=== PATIENT | male | born 1945 | race Caucasian/White ===

== ENCOUNTER 2024-06-08 08:42 | Emergency (ER) | payer MEDICARE ==
[2024-06-08 08:47] VITALS: TEMP 98.2
--- NOTE | 2024-06-08 09:10 | ED ---
Male Urogenital HPI - General Chief complaint: Urogenital Stated complaint: abd pain Time Seen by Provider: 06/08/24 08:44 Source: patient, family, RN notes reviewed Mode of arrival: ambulatory Limitations: no limitations - History of Present Illness Initial comments: 79-year-old male presents emergency department with chief complaint of unable to urinate. Patient states has not been able to urinate overnight states he has lower abdominal pressure, discomfort. He states he had this happen 1 other time. Patient denies any change in bowel habits no fevers or chills no chest pain or shortness of breath. - Related Data Previous Rx's Medication Instructions Recorded Ciprofloxacin HCl [Cipro] 500 mg PO Q12HR #20 tablet 06/08/24 Tamsulosin [Flomax] 0.4 mg PO DAILY #7 cap 06/08/24 Allergies Allergy/AdvReac Type Severity Reaction Status Date / Time No Known Allergies Allergy Verified 06/08/24 10:07 Review of Systems ROS Statement: Those systems with pertinent positive or pertinent negative responses have been documented in the HPI. ROS Other: All systems not noted in ROS Statement are negative. Past Medical History Past Medical History: No Reported History History of Any Multi-Drug Resistant Organisms: None Reported Past Surgical History: No Surgical Hx Reported Past Anesthesia/Blood Transfusion Reactions: No Reported Reaction Additional Past Anesthesia/Blood Transfusion Reaction / Comment(s): HAS NEVER HAD SURGERY Past Psychological History: No Psychological Hx Reported Smoking Status: Never smoker Past Alcohol Use History: Occasional Past Drug Use History: None Reported General Exam Limitations: no limitations General appearance: alert, in no apparent distress Head exam: Present: atraumatic, normocephalic, normal inspection Eye exam: Present: normal appearance, PERRL, EOMI. Absent: scleral icterus, conjunctival injection, periorbital swelling Respiratory exam: Present: normal lung sounds bilaterally. Absent: respiratory distress, wheezes, rales, rhonchi, stridor Cardiovascular Exam: Present: regular rate, normal rhythm, normal heart sounds. Absent: systolic murmur, diastolic murmur, rubs, gallop, clicks GI/Abdominal exam: Present: soft, tenderness, normal bowel sounds. Absent: distended, guarding, rebound, rigid Back exam: Absent: CVA tenderness (R), CVA tenderness (L) Course Vital Signs 06/08/24 06/08/24 06/08/24 08:44 09:18 11:05 Temperature 98.2 F Pulse Rate 100 74 Respiratory 18 20 Rate Blood Pressure 198/109 151/94 174/107 O2 Sat by Pulse 98 98 Oximetry Medical Decision Making - Medical Decision Making Was pt. sent in by a medical professional or institution ([facility] Thorpe, [employer] INSTRUMENT REPAIRER, urgent care, hospital, or [facility]...) When possible be specific @ -No Did you speak to anyone other than the patient for history (EMS, parent, family, police, friend...)? What history was obtained from this source @ -No Did you review nursing and triage notes (agree or disagree)? Why? @ -I reviewed and agree with nursing and triage notes Were old charts reviewed (outside hosp., previous admission, EMS record, old EKG, old radiological studies, urgent care reports/EKG's, [facility] records)? Report findings @ -No old charts were reviewed Differential Diagnosis (chest pain, altered mental status, abdominal pain women, abdominal pain men, vaginal bleeding, weakness, fever, dyspnea, syncope, headache, dizziness, GI bleed, back pain, seizure, CVA, palpatations, mental health, musculoskeletal)? @ -Urinary retention, prostatitis, UTI EKG interpreted by me (3pts min.). @ -As above X-rays interpreted by me (1pt min.). @ -None done CT interpreted by me (1pt min.). @ -None done U/S interpreted by me (1pt. min.). @ -None done What testing was considered but not performed or refused? (CT, X-rays, U/S, labs)? Why? @ -None What meds were considered but not given or refused? Why? @ -None Did you discuss the management of the patient with other professionals (professionals i.e. [facility] Thorpe, [employer] INSTRUMENT REPAIRER, lab, RT, psych nurse, health and social care teacher, senior cognos developer, teacher, house officer, caseworker protective services)? Give summary @ -No Was smoking cessation discussed for >3mins.? @ -No Was critical care preformed (if so, how long)? @ -No Were there social determinants of health that impacted care today? How? (Homel essness, low income, unemployed, alcoholism, drug addiction, transportation, low edu. Level, literacy, decrease access to med. care, detention, rehab)? @ -No Was there de-escalation of care discussed even if they declined (Discuss DNR or withdrawal of care, Hospice)? DNR status @ -No What co-morbidities impacted this encounter? (DM, HTN, Smoking, COPD, CAD, Cancer, CVA, ARF, Chemo, Hep., AIDS, mental health diagnosis, sleep apnea, morbid obesity)? @ -None Was patient admitted / discharged? Hospital course, mention meds given and route, prescriptions, significant lab abnormalities, going to OR and other pertinent info. @ -[Discharge patient presented for urinary retention patient did relief after Grajeda catheter patient found to have UTI patient was given Rocephin discharged on oral antibiotics patient will follow-up with urology return parens discussed. Undiagnosed new problem with uncertain prognosis? @ -No Drug Therapy requiring intensive monitoring for toxicity (Heparin, Nitro, Insulin, Cardizem)? @ -No Were any procedures done? @ -No Diagnosis/symptom? @ -UTI, urinary retention Acute, or Chronic, or Acute on Chronic? @ -[Acute Uncomplicated (without systemic symptoms) or Complicated (systemic symptoms)? @ -Uncomplicated Side effects of treatment? @ -No Exacerbation, Progression, or Severe Exacerbation? @ -No Poses a threat to life or bodily function? How? (Chest pain, [place], [place], pneumonia, PE, COPD, DKA, ARF, appy, cholecystitis, CVA, Diverticulitis, Homicidal, Suicidal, threat to staff... and all critical care pts) @ -No - Lab Data Lab Results 06/08/24 Range/Units 09:18 Urine Color Light Yellow Urine Appearance Cloudy (Clear) Urine pH 6.0 (5.0-8.0) Ur Specific [place] 1.013 (1.001-1.035) Urine Protein Trace H (Negative) Urine Glucose (UA) Negative (Negative) Urine Ketones Negative (Negative) Urine Blood Large H (Negative) Urine Nitrite Positive (Negative) Urine Bilirubin Negative (Negative) Urine Urobilinogen <2.0 (<2.0) mg/dL Ur Leukocyte Esterase Large H (Negative) Urine RBC >182 H (0-5) /hpf Urine WBC >182 H (0-5) /hpf Urine WBC Clumps Few H (None) /hpf Urine Bacteria Few H (None) /hpf Urine Mucus Rare H (None) /hpf Disposition Clinical Impression: Urinary retention, UTI (urinary tract infection) Disposition: HOME SELF-CARE Condition: Stable Instructions (If sedation given, give patient instructions): Urinary Retention in Men (ED) Additional Instructions: Please return to the Emergency Department if symptoms worsen or any other concerns. Prescriptions: Ciprofloxacin HCl [Cipro] 500 mg PO Q12HR #20 tablet Tamsulosin [Flomax] 0.4 mg PO DAILY #7 cap Is patient prescribed a controlled substance at d/c from ED?: No Referrals: Genevieve Jay MD [Primary Care Provider] - 1-2 days Mariano Beth MD [STAFF PHYSICIAN] - 1-2 days Time of Disposition: 09:54
[2024-06-08 09:43] LABS: Appearance,Urine Cloudy (Clear); Bacteria,Urine Few /hpf; Bilirubin,Urine Negative (Negative); Blood,Urine Large (Negative); Color,Urine Light Yellow; Glucose,Urine (UA) Negative (Negative); Ketones,Urine Negative (Negative); Leukocyte Esterase,Urine Large (Negative); Mucus,Urine Rare /hpf; Nitrite,Urine Positive (Negative); Protein,Urine Trace (Negative); RBC,Urine >182 /hpf (0-5); Specific Gravity,Urine 1.013 (1.001-1.035); Urobilinogen,Urine <2.0 mg/dL (<2.0); WBC,Urine >182 /hpf (0-5)
[2024-06-08] MEDS: TAMSULOSIN 0.4 MG CAP.ER.24H PO STA (10:34)
[2024-06-08] MEDS: cefTRIAXone 1,000 MG VIAL (IM USE) IM STA (10:53)
[2024-06-08 11:16] VITALS: BP 174/107; PULSE 74; RESP 20
== END 2024-06-08 11:16 | disposition home or self-care (01) ==
LOC: EC 08:42
DX: N39.0 Urinary tract infection, site not specified (principal); R33.9 Retention of urine, unspecified; B96.20 Unspecified Escherichia coli [E. coli] as the cause of diseases classified elsewhere
CPT/HCPCS: 51798; 81001; 87086; 87077; 87186; 99284; 51702; 96372; J0696

== ENCOUNTER 2024-06-18 02:42 | Emergency (ER) | payer MEDICARE ==
[2024-06-18 02:48] VITALS: RESP 18; TEMP 97.8
--- NOTE | 2024-06-18 03:30 | ED ---
General Adult HPI - General Chief complaint: Recheck/Abnormal Lab/Rx Stated complaint: chest pressure Time Seen by Provider: 06/18/24 03:02 Source: patient Mode of arrival: ambulatory Limitations: no limitations - History of Present Illness Initial comments: This patient is an 79-year-old man who is here with complaints mainly that he has not been able to sleep tonight. The patient noted feeling alternately warm and cold and also anxious. He is denying pain anywhere. No dyspnea or cough. The patient does not believe he was having fever. Onset/Timin -: hour(s) Severity scale (1-10): 0 Consistency: constant Improves with: none Worsens with: none Associated Symptoms: denies other symptoms - Related Data Previous Rx's Medication Instructions Recorded Ciprofloxacin HCl [Cipro] 500 mg PO Q12HR #20 tablet 06/08/24 Tamsulosin [Flomax] 0.4 mg PO DAILY #7 cap 06/08/24 Nitrofurantoin Monohyd/M-Cryst 100 mg PO Q12HR #14 cap 06/14/24 [Macrobid] Allergies Allergy/AdvReac Type Severity Reaction Status Date / Time No Known Allergies Allergy Verified 06/18/24 02:45 Review of Systems ROS Statement: Those systems with pertinent positive or pertinent negative responses have been documented in the HPI. ROS Other: All systems not noted in ROS Statement are negative. Constitutional: Reports: chills. Denies: fever, weakness Eyes: Denies: vision change Respiratory: Denies: cough, dyspnea Cardiovascular: Denies: chest pain, palpitations, edema, syncope Gastrointestinal: Denies: abdominal pain, nausea, vomiting, diarrhea Genitourinary: Denies: dysuria, hematuria Musculoskeletal: Denies: back pain Skin: Denies: rash Neurological: Denies: headache, weakness, numbness Psychiatric: Reports: anxiety Past Medical History Past Medical History: No Reported History Additional Past Medical History / Comment(s): urinary retention History of Any Multi-Drug Resistant Organisms: None Reported Past Surgical History: No Surgical Hx Reported, Hernia Repair Past Anesthesia/Blood Transfusion Reactions: No Reported Reaction Additional Past Anesthesia/Blood Transfusion Reaction / Comment(s): HAS NEVER HAD SURGERY Past Psychological History: No Psychological Hx Reported Smoking Status: Never smoker Past Alcohol Use History: Occasional Past Drug Use History: None Reported General Exam Limitations: no limitations General appearance: alert, in no apparent distress Head exam: Present: atraumatic, normocephalic Eye exam: Present: normal appearance. Absent: scleral icterus, conjunctival injection ENT exam: Present: normal oropharynx Neck exam: Present: normal inspection, full ROM. Absent: meningismus Respiratory exam: Present: normal lung sounds bilaterally. Absent: respiratory distress, wheezes, rales, rhonchi, stridor, accessory muscle use Cardiovascular Exam: Present: normal rhythm, normal heart sounds. Absent: systolic murmur, diastolic murmur, rubs, gallop GI/Abdominal exam: Present: soft. Absent: distended, tenderness, guarding, rebound, rigid, mass Extremities exam: Present: normal inspection, normal capillary refill. Absent: pedal edema, calf tenderness Back exam: Present: normal inspection. Absent: CVA tenderness (R), CVA tenderness (L) Neurological exam: Present: alert, oriented X3. Absent: motor sensory deficit Psychiatric exam: Present: normal affect, normal mood, other Skin exam: Present: warm, dry, intact, normal color. Absent: rash Course Vital Signs 06/18/24 06/18/24 06/18/24 02:45 03:02 03:09 Temperature 97.8 F Pulse Rate 112 H 92 Pulse Rate [ 85 Left Radial] Respiratory 18 18 Rate Blood Pressure 185/97 158/92 O2 Sat by Pulse 96 96 Oximetry 06/18/24 03:40 Temperature Pulse Rate 77 Pulse Rate [ Left Radial] Respiratory 18 Rate Blood Pressure 147/94 O2 Sat by Pulse 98 Oximetry Medical Decision Making - Medical Decision Making Was pt. sent in by a medical professional or institution (, PA, MANAGER OF CONSTRUCTION, urgent care, hospital, or shelter...) When possible be specific @ -[No] Did you speak to anyone other than the patient for history (EMS, parent, family, police, friend...)? What history was obtained from this source @ -[No] Did you review nursing and triage notes (agree or disagree)? Why? @ -[I reviewed and agree with nursing and triage notes] Were old charts reviewed (outside hosp., previous admission, EMS record, old EKG, old radiological studies, urgent care reports/EKG's, shelter records)? Report findings @ -[No old charts were reviewed] Differential Diagnosis (chest pain, altered mental status, abdominal pain women, abdominal pain men, vaginal bleeding, weakness, fever, dyspnea, syncope, heada martha, dizziness, GI bleed, back pain, seizure, CVA, palpatations, mental health, musculoskeletal)? @ -[Differential Mental Health Depression, anxiety, bipolar, psychosis, schizophrenia, borderline personality, situational depression, adjustment disorder, behavioral disorder, brain tumor, malingering, substance abuse, encephalopathy, medication reaction, dementia, hypothyroidism, degenerative neurologic disorder, lupus.... This is not meant to be all-inclusive list EKG interpreted by me (3pts min.). @ -[As above] X-rays interpreted by me (1pt min.). @ -[None done] CT interpreted by me (1pt min.). @ -[None done] U/S interpreted by me (1pt. min.). @ -[None done] What testing was considered but not performed or refused? (CT, X-rays, U/S, labs)? Why? @ -[Laboratory testing was considered but at this point the patient declining however he will return if the symptoms do not improve or if he has any additional symptoms develop. What meds were considered but not given or refused? Why? @ -[None] Did you discuss the management of the patient with other professionals (professionals i.e. , PA, MANAGER OF CONSTRUCTION, lab, RT, psych nurse, social work instructor, sewer, teacher, disabilities services officer, immigration case manager)? Give summary @ -[No] Was smoking cessation discussed for >3mins.? @ -[No] Was critical care preformed (if so, how long)? @ -[No] Were there social determinants of health that impacted care today? How? (Homelessness, low income, unemployed, alcoholism, drug addiction, transportation, low edu. Level, literacy, decrease access to med. care, longterm, rehab)? @ -[No] Was there de-escalation of care discussed even if they declined (Discuss DNR or withdrawal of care, Hospice)? DNR status @ -[No] What co-morbidities impacted this encounter? (DM, HTN, Smoking, COPD, CAD, Cancer, CVA, ARF, Chemo, Hep., AIDS, mental health diagnosis, sleep apnea, morbid obesity)? @ -[None] Was patient admitted / discharged? Hospital course, mention meds given and route, prescriptions, significant lab abnormalities, going to OR and other pertinent info. @ -[This patient is an 79-year-old man who is here mainly with complaint that he was not able to sleep tonight. The patient was offered workup including labs and other tests but the patient stated that while he was here and waiting to be seen he is feeling better and would like to go home he does request something to help him sleep tonight. The patient does agree to return if symptoms have not improved or if any new symptoms develop. Undiagnosed new problem with uncertain prognosis? @ -[No] Drug Therapy requiring intensive monitoring for toxicity (Heparin, Nitro, Insulin, Cardizem)? @ -[No] Were any procedures done? @ -[No] Diagnosis/symptom? @ -[Acute insomnia Acute, or Chronic, or Acute on Chronic? @ -[Acute Uncomplicated (without systemic symptoms) or Complicated (systemic symptoms)? @ -[Uncomplicated Side effects of treatment? @ -[No] Exacerbation, Progression, or Severe Exacerbation? @ -[No] Poses a threat to life or bodily function? How? (Chest pain, [place], [place], pneumonia, PE, COPD, DKA, ARF, appy, cholecystitis, CVA, Diverticulitis, Homicidal, Suicidal, threat to staff... and all critical care pts) @ -[No] All treatments are based on ideal body weight as in ED triage Disposition Clinical Impression: Insomnia Disposition: HOME SELF-CARE Condition: Good Instructions (If sedation given, give patient instructions): Insomnia (ED) Is patient prescribed a controlled substance at d/c from ED?: No Referrals: None,Stated [REFERRING] - 1-2 days Genevieve Jay MD [Primary Care Provider] - 1-2 days
[2024-06-18 03:46] VITALS: BP 147/94; PULSE 77
[2024-06-18] MEDS: LORazepam 1 MG TAB PO STA (03:46)
== END 2024-06-18 03:48 | disposition home or self-care (01) ==
LOC: EC 02:42
DX: G47.00 Insomnia, unspecified (principal)
CPT/HCPCS: 99284

== ENCOUNTER → 2024-08-05 | Outpatient (CLI) | payer MEDICARE ==
--- NOTE | 2024-08-05 09:01 | MR ---
EXAMINATION TYPE: MR Prostate wo/w con DATE OF EXAM: 08/05/2024 COMPARISON: CT abdomen and pelvis 2015 INDICATION: Elevated PSA PSA: 18.6 ng/ml in July 2024 Recent Biopsy and Date: None Pathology Report (If Applicable): n/a TECHNIQUE: Examination was performed using a 3T MRI without an endorectal coil. Multiparametric imaging was perf ormed with T2 mutliplanar sequences, axial diffusion weighted imaging and dynamic contrast enhanced i maging, utilizing 7 mL intravenous Gadobutrol gadolinium contrast. FINDINGS: PROSTATE VOLUME: 6.4 cm SI x 5.0 cm AP x 5.6 cm LR Vol= 93.8 cc PSA DENSITY: 0.20 ng/ml/cc Significantly enlarged prostate consistent with BPH is present. Bilateral peripheral zone shows some linear areas of slightly diminished signal on ADC mapping. There is transitional zone hypertrophy wit h bilateral nodules. Site 1: Assessment Category:4 Size: 1.2 cm The area of focal diminished signal on ADC mapping corresponding to increased signal on diffusion-giovanna ghted images with ill-defined T2 hypointense signal and focal postcontrast enhancement in the periphe ral zone lateral posterior aspect right mid gland level. Assessment Category:4 Small fat-containing bilateral inguinal hernias are present. Urinary bladder shows mild wall thickeni ng. Sigmoid colonic diverticulosis is present. No destructive osseous lesions are seen. IMPRESSION: Significantly enlarged prostate consistent with BPH. A suspicious lesion in the right peripheral zone is noted. Imaging guided targeted biopsy is advised to further evaluate. Highest Assessment Category: 4 MRI Stage: T0 N0 M0 based on review of pelvic images. False negative rates for MRI range from 5-20% depending on risk profile. Assessment Categories: 1 ? Very low (clinically significant cancer is highly unlikely to be present) 2 ? Low (clinically significant cancer is unlikely to be present) 3 ? Intermediate (the presence of clinically significant cancer is equivocal) 4 ? High (clinically significant cancer is likely to be present) 5 ? Very high (clinically significant cancer is highly likely to be present) [facility], , 08/05/2024 8:58 AM
== END | disposition home or self-care (01) ==
LOC: RADMRIMAIN 07:52
PROVIDERS: ATTEND Internal Medicine
DX: N40.0 Benign prostatic hyperplasia without lower urinary tract symptoms (principal); R97.20 Elevated prostate specific antigen [PSA]; K57.30 Diverticulosis of large intestine without perforation or abscess without bleeding; K40.20 Bilateral inguinal hernia, without obstruction or gangrene, not specified as recurrent
CPT/HCPCS: 72197; A9585

== ENCOUNTER → 2024-09-20 | Outpatient (CLI) | payer MEDICARE ==
[2024-09-20 16:03] LABS: Basophils # (A) 0.03 X 10*3/uL (0.00-0.10); Basophils % (A) 0.7 %; Eosinophils # (A) 0.08 X 10*3/uL (0.04-0.35); Eosinophils % (A) 1.8 %; HCT 30.8 % (39.6-50.0); HGB 9.3 g/dL (13.0-17.0); Lymphocytes # (A) 0.85 X 10*3/uL (0.90-5.00); Lymphocytes % (A) 18.6 %; MCH 24.7 pg (27.0-32.0); MCHC 30.2 g/dL (32.0-37.0); MCV 81.9 FL (80.0-97.0); Mean Platelet Volume 11.5 FL (9.5-12.2); Monocytes # (A) 0.26 X 10*3/uL (0.20-1.00); Monocytes % (A) 5.7 %; NRBC Per 100 WBC 0 X 10*3/uL (0.00-0.01); Neutrophils # (A) 3.33 X 10*3/uL (1.80-7.70); Neutrophils % (A) 72.8 %; Platelet Count 193 X 10*3/uL (140-440); RBC 3.76 X 10*6/uL (4.40-5.60); WBC 4.57 X 10*3/uL (4.50-10.00)
[2024-09-20 18:12] LABS: Carbon Dioxide 26.2 mmol/L (21.6-31.8); Chloride 103 mmol/L (96-109); Glucose 143 mg/dL (70-110); Sodium 139 mmol/L (135-145)
== END | disposition home or self-care (01) ==
LOC: LABPAT 12:39
PROVIDERS: ATTEND Urology
DX: Z01.812 Encounter for preprocedural laboratory examination (principal); R97.20 Elevated prostate specific antigen [PSA]
CPT/HCPCS: 80048; 85025

== ENCOUNTER → 2024-11-03 | Outpatient (CLI) | payer MEDICARE ==
--- NOTE | 2024-11-04 16:41 | PE ---
EXAMINATION TYPE: PET CT fusion skull to thigh DATE OF EXAM: 11/03/2024 CLINICAL INDICATION:Male, 79 years old with history of C61 MALIGNANT NEOPLASM OF PROSTATE; TECHNIQUE: Following the intravenous administration of 5.37 mCi of Ga-68 Illuccix (PSMA), whole bod y images are performed from the skull vertex to the midthigh. Images are reviewed on the computer in the coronal, axial, and sagittal planes. Reconstructed rotating images are created on independent [employer] orkstation and reviewed on the computer. A non-contrast CT is performed in conjunction with the PET scan. CT DLP: 635 mGycm, Automated exposure control for dose reduction was used. COMPARISON: CT 06/22/2015, PET/CT None, MRI: 08/05/2024 FINDINGS: Mediastinal SUV mean is 2.1. Hepatic parenchyma SUV mean is 5.7. SKULL BASE AND NECK: No suspicious radiotracer activity. CHEST, MEDIASTINUM, AND HILAR REGION: No suspicious radiotracer activity. ABDOMEN AND PELVIS: Enlarged prostate gland measuring 5.5 cm in transverse dimension. There is median lobe hypertrophy wh ich indents upon the urinary bladder base. There is focal radiotracer activity within the posterior r ight zone at site of previously seen prominence for lesion. Demonstrates a maximum SUV of 13.0. Addit ional region of radiotracer activity identified within the left lateral peripheral zone. Demonstrates a maximum SUV of 12.1. MUSCULOSKELETAL STRUCTURES: No suspicious radiotracer activity. OTHER CT: Nasal septal deviation to the right with spurring. Mild coronary arterial calcifications. C ardiomegaly. Trace pericardial effusion. Degenerative changes of the bilateral SI joints with anterio r bridging. Multilevel degenerative disc disease. Moderate generalized atrophy of the pancreas. Exoph ytic simple appearing left renal 1.3 cm cyst. No follow-up recommended. Mild atherosclerotic calcific ation of the aorta and its branches. Distal colonic diverticulosis with some stranding changes surrou nding the sigmoid diverticula. Small fat filled bilateral inguinal hernias. IMPRESSION: 1. Focal region of radiotracer activity within the posterior right peripheral zone of the prostate g land corresponding to a PI-RADS 4 lesion on MRI. Consistent with known prostate malignancy. Additiona l focal region of radiotracer activity within the left lateral prostate gland peripheral zone concern ing for an additional site of prostate malignancy. No other suspicious areas of radiotracer uptake to suggest metastasis. 2. Findings concerning for uncomplicated early acute sigmoid diverticulitis. [facility], , 11/04/2024 4:39 PM
== END | disposition home or self-care (01) ==
LOC: RADPETMAIN 08:04
PROVIDERS: ATTEND Urology
DX: C61 Malignant neoplasm of prostate (principal)
CPT/HCPCS: 78815; A9596